=== PATIENT | female | born 1965 | race Caucasian/White ===

== ENCOUNTER 2019-02-14 12:16 | Emergency (ER) | payer BC ==
[~2019-02-14] VITALS: Ht 157.5 cm; Wt 78.0 kg
[2019-02-14 12:30] VITALS: Ht 157.5 cm; Wt 78.0 kg
[2019-02-14 17:20] VITALS: BP 175/103; PULSE 89; RESP 18
== END 2019-02-14 17:22 | disposition home or self-care (01) ==
LOC: E/R 12:16
DX: R07.9 Chest pain, unspecified (principal)
CPT/HCPCS: 36415; 71045; 80048; 84484; 85025; 93005